=== PATIENT | female | born 1990 | race Two or more races ===

== ENCOUNTER 2017-11-05 03:07 | Emergency (ER) | payer MEDICAID, OTHER ==
[2017-11-05] MEDS ORDERED: Ketorolac 60 MG/2 ML SDV IM ONE (03:26)
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
[2017-11-05 04:51] VITALS: BP 108/63
== END 2017-11-05 04:25 | disposition home or self-care (01) ==
LOC: FB.ED 03:07
DX: S00.83XA Contusion of other part of head, initial encounter (principal); F17.210 Nicotine dependence, cigarettes, uncomplicated; Y04.0XXA Assault by unarmed brawl or fight, initial encounter
CPT/HCPCS: 70486; 96372; 99283; J1885

== ENCOUNTER 2019-09-08 17:25 | Observation (INO) | payer MEDICAID, OTHER ==
[2019-09-08] MEDS ORDERED: Morphine 2 MG/ML Syringe IVPUSH ONE ×2 (17:48→20:05)
[2019-09-08] MEDS ORDERED: Sodium Chloride 0.9% 1,000 ML IV SCH (18:00)
[2019-09-08] MEDS ORDERED: Ondansetron 4 MG/2 ML SDV IVPUSH ONE (19:19)
[2019-09-08] MEDS: Sodium Chloride 0.9% 1,000 ML IV SCH (20:04)
[2019-09-08] MEDS ORDERED: Ondansetron 4 MG/2 ML SDV IVPUSH PRN (20:51)
[2019-09-08] MEDS ORDERED: cefTRIAXone 1 GM in Sodium Chloride 0.9% 50 ML IV SCH (21:00)
[2019-09-08] MEDS: Potassium Chloride 20 MEQ Tab.ER PO SCH (21:24)
[2019-09-08] MEDS: Acetaminophen 500 MG Tab PO PRN (21:25)
[2019-09-09] MEDS: Morphine 2 MG/ML Syringe IVPUSH PRN ×4 (00:36→18:56)
[2019-09-09] MEDS ORDERED: Morphine 2 MG/ML Syringe IVPUSH ONE (02:17)
[2019-09-09] MEDS: Sodium Chloride 0.9% 1,000 ML IV SCH (03:48)
--- NOTE | 2019-09-09 04:13 | EDM.PDOC ---
ED HPI GENERAL MEDICAL PROBLEM - General Chief Complaint: Abdominal Pain Stated Complaint: RIGHT SIDE PAIN Time Seen by Provider: 09/08/19 17:30 Source of Information: Reports: Patient History Limitations: Reports: No Limitations - History of Present Illness INITIAL COMMENTS - FREE TEXT/NARRATIVE: Patient presented to the ED because of 2 day history of right flank pain radiating to the RLQ and right groin. The pain is sharp,10/10 with associated nausea but no vomiting. Denies any urinary s/s or changes in bowel movement. There is no fever/chills noted. She also want to be checked for although he has a nexplanon implant which was done 4 years ago. 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 Social & Family History - Family History Family Medical History: Noncontributory - Tobacco Use Smoking Status *Q: Current Some Day Smoker Years of Tobacco use: 10 Packs/Tins Daily: 0 Used Tobacco, but Quit: No Second Hand Smoke Exposure: Yes - Caffeine Use Caffeine Use: Reports: Coffee, Soda - Alcohol Use Days Per Week of Alcohol Use: 0 - Recreational Drug Use Recreational Drug Use: Yes Drug Use in Last 12 Months: Yes Recreational Drug Type: Reports: Marijuana/Hashish Recreational Drug Use Frequency: Weekly ED ROS GENERAL - Review of Systems Review Of Systems: See Below Constitutional: Reports: No Symptoms HEENT: Reports: No Symptoms Respiratory: Reports: No Symptoms Cardiovascular: Reports: No Symptoms Endocrine: Reports: No Symptoms GI/Abdominal: Reports: Abdominal Pain, Nausea. Denies: Vomiting : Reports: Flank Pain. Denies: Dysuria, Frequency, Urgency Musculoskeletal: Reports: No Symptoms Skin: Reports: No Symptoms Neurological: Reports: No Symptoms Psychiatric: Reports: No Symptoms Hematologic/Lymphatic: Reports: No Symptoms Immunologic: Reports: No Symptoms ED EXAM, GI/ABD - Physical Exam Exam: See Below Exam Limited By: No Limitations General Appearance: Alert, No Apparent Distress Ears: Normal External Exam, Normal Canal, Hearing Grossly Normal Nose: Normal Inspection, Normal Mucosa, No Blood Throat/Mouth: Normal Inspection, Normal Lips, Normal Teeth Head: Atraumatic, Normocephalic Neck: Normal Inspection, Supple, Non-Tender, Full Range of Motion Respiratory/Chest: No Respiratory Distress, Lungs Clear, Normal Breath Sounds, No Accessory Muscle Use, Chest Non-Tender Cardiovascular: Normal Peripheral Pulses, Regular Rate, Rhythm, No Edema, No Gallop, No JVD, No Murmur, No Rub GI/Abdominal Exam: Normal Bowel Sounds, Soft, Non-Tender, No Organomegaly, No Distention, No Abnormal Bruit (Female) Exam: Other (suprapubic tenderness) Back Exam: Normal Inspection Extremities: Normal Inspection Neurological: Alert, Oriented, CN II-XII Intact, Normal Cognition Psychiatric: Normal Affect, Normal Mood Skin Exam: Warm, Dry, Intact Course - Vital Signs Text/Narrative:: labs/US-OB and appendix discussed with the patient and verbalized understanding OB US-8th wk gestation US appendix-neg NS 1 L bolus zofran 4 mg IV morphine 2 mg IV x2 doses start on Rocephin 1gm IV Last Recorded V/S: Last Vital Signs Temp 37.3 C 09/09/19 00:00 Pulse 106 H 09/09/19 00:00 Resp 16 09/09/19 00:00 BP 90/53 L 09/09/19 00:00 Pulse Ox 97 09/09/19 00:00 - Orders/Labs/Meds Orders: Active Orders 24 hr Category Date Time Status Patient Status [ADT] Routine ADT 09/08/19 20:41 Active Intake and Output [RC] 06,14,22 Care 09/08/19 20:42 Active Oxygen Therapy [RC] PRN Care 09/08/19 20:41 Active Pulse Oximetry [RC] PRN Care 09/08/19 20:42 Active Up With Assistance [RC] ASDIRECTED Care 09/08/19 20:41 Active VTE/DVT Education [RC] Per Unit Routine Care 09/08/19 20:41 Active Vital Signs [RC] 08,12,16,20,00,04 Care 09/08/19 20:41 Active Regular Diet [DIET] Diet 09/08/19 Dinner Active Abdomen Ltd [US] Stat Exams 09/08/19 19:37 Taken OB Ltd 1 or More Fetus [US] Routine Exams 09/08/19 19:36 Taken OB Transvaginal [US] Routine Exams 09/08/19 19:36 Taken BASIC METABOLIC PANEL,BMP [CHEM] Routine Lab 09/09/19 06:00 Ordered CBC WITH AUTO DIFF [HEME] Routine Lab 09/09/19 06:00 Ordered CULTURE URINE [RM] Stat Lab 09/08/19 17:41 Received Acetaminophen [Tylenol Extra Strength] Med 09/08/19 20:51 Active 500 mg PO Q4H PRN Morphine Med 09/08/19 20:54 Active 2 mg IVPUSH Q4H PRN Ondansetron [Zofran] Med 09/08/19 20:51 Active 4 mg IVPUSH Q4H PRN Potassium Chloride [Klor-Con M20] Med 09/08/19 21:00 Active 40 meq PO BIDMEALS Sodium Chloride 0.9% [Normal Saline] 1,000 ml Med 09/08/19 18:00 Active IV ASDIRECTED Sodium Chloride 0.9% [Normal Saline] 1,000 ml Med 09/08/19 20:15 Active IV ASDIRECTED cefTRIAXone [Rocephin] 1 gm Med 09/08/19 21:00 Active Sodium Chloride 0.9% [Normal Saline] 50 ml IV Q24H Resuscitation Status Routine Resus Stat 09/08/19 20:41 Ordered Medication Orders Acetaminophen (Tylenol Extra Strength) 500 mg PO Q4H PRN PRN Reason: Fever Last Admin: 09/08/19 21:25 Dose: 500 mg Sodium Chloride (Normal Saline) 1,000 mls @ 999 mls/hr IV ASDIRECTED [facility] Last Admin: 09/08/19 19:03 Dose: 999 mls/hr Sodium Chloride (Normal Saline) 1,000 mls @ 125 mls/hr IV ASDIRECTED AJ Last Admin: 09/09/19 03:48 Dose: 125 mls/hr Infusion: 09/09/19 03:48 Dose: 125 mls/hr Admin: 09/08/19 20:04 Dose: 125 mls/hr Ceftriaxone Sodium 1 gm/ (Sodium Chloride) 50 mls @ 200 mls/hr IV Q24H [facility] Last Admin: 09/08/19 21:25 Dose: 200 mls/hr Morphine Sulfate (Morphine) 2 mg IVPUSH Q4H PRN PRN Reason: Pain Last Admin: 09/09/19 00:36 Dose: 2 mg Ondansetron HCl (Zofran) 4 mg IVPUSH Q4H PRN PRN Reason: Nausea/Vomiting Potassium Chloride (Klor-Con M20) 40 meq PO BIDMEALS AJ Stop: 09/10/19 08:01 Last Admin: 09/08/19 21:24 Dose: 40 meq Labs: Laboratory Tests 09/08/19 09/08/19 09/08/19 Range/Units 17:41 17:41 18:00 WBC 12.1 H (4.5-12.0) X10-3/uL RBC 3.90 (3.23-5.20) x10(6)uL Hgb 11.3 L (11.5-15.5) g/dL Hct 33.2 (30.0-51.3) % MCV 85.3 (80-96) fL MCH 29.1 (27.7-33.6) pg MCHC 34.1 (32.2-35.4) g/dL RDW 13.8 (11.5-15.5) % Plt Count 250 (125-369) X10(3)uL MPV 8.6 (7.4-10.4) fL Add Manual Diff Yes Neutrophils % (Manual) 85 H (46-82) % Band Neutrophils % 4 (0-6) % Lymphocytes % (Manual) 7 L (13-37) % Monocytes % (Manual) 4 (4-12) % Sodium (135-145) mmol/L Potassium (3.5-5.3) mmol/L Chloride (100-110) mmol/L Carbon Dioxide (21-32) mmol/L BUN (7-18) mg/dL Creatinine (0.55-1.02) mg/dL Est Cr Clr Drug Dosing Estimated GFR (MDRD) (>60) BUN/Creatinine Ratio (9-20) Glucose (80-116) mg/dL Calcium (8.6-10.2) mg/dL Total Bilirubin (0.1-1.3) mg/dL AST (5-25) IU/L ALT (12-36) U/L Alkaline Phosphatase (56-112) IU/L Total Protein (6.0-8.0) g/dL Albumin (3.5-5.2) g/dL Globulin g/dL Albumin/Globulin Ratio Amylase (25-115) U/L Lipase (73-393) U/L Urine Color Yellow (YELLOW) Urine Appearance Slightly cloudy (CLEAR) Urine pH 6.0 (5.0-6.5) Ur Specific [place] 1.020 (1.010-1.025) Urine Protein 500 H (NEGATIVE) mg/dL Urine Glucose (UA) 100 H (NORMAL) mg/dL Urine Ketones 15 H (NEGATIVE) mg/dL Urine Occult Blood Moderate H (NEGATIVE) Urine Nitrite Positive H (NEGATIVE) Urine Bilirubin Negative (NEGATIVE) Urine Urobilinogen 1 H (NEGATIVE) mg/dL Ur Leukocyte Esterase Large H (NEGATIVE) Urine RBC 5-10 H (0-5) Urine WBC 75-100 H (0-5) Ur Squamous Epith Cells Few H (NS,R,O) Urine Bacteria Moderate H (NS) Urine HCG, Qual Positive H (NEGATIVE) 09/08/19 09/08/19 Range/Units 18:00 18:00 WBC (4.5-12.0) X10-3/uL RBC (3.23-5.20) x10(6)uL Hgb (11.5-15.5) g/dL Hct (30.0-51.3) % MCV (80-96) fL MCH (27.7-33.6) pg MCHC (32.2-35.4) g/dL RDW (11.5-15.5) % Plt Count (125-369) X10(3)uL MPV (7.4-10.4) fL Add Manual Diff Neutrophils % (Manual) (46-82) % Band Neutrophils % (0-6) % Lymphocytes % (Manual) (13-37) % Monocytes % (Manual) (4-12) % Sodium 137 (135-145) mmol/L Potassium 3.3 L (3.5-5.3) mmol/L Chloride 102 (100-110) mmol/L Carbon Dioxide 23 (21-32) mmol/L BUN 4 L (7-18) mg/dL Creatinine 0.6 (0.55-1.02) mg/dL Est Cr Clr Drug Dosing TNP Estimated GFR (MDRD) > 60 (>60) BUN/Creatinine Ratio 6.7 L (9-20) Glucose 121 H (80-116) mg/dL Calcium 9.1 (8.6-10.2) mg/dL Total Bilirubin 0.6 (0.1-1.3) mg/dL AST 11 (5-25) IU/L ALT 11 L (12-36) U/L Alkaline Phosphatase 84 (56-112) IU/L Total Protein 7.4 (6.0-8.0) g/dL Albumin 3.1 L (3.5-5.2) g/dL Globulin 4.3 g/dL Albumin/Globulin Ratio 0.7 Amylase 28 (25-115) U/L Lipase 53 L (73-393) U/L Urine Color (YELLOW) Urine Appearance (CLEAR) Urine pH (5.0-6.5) Ur Specific [place] (1.010-1.025) Urine Protein (NEGATIVE) mg/dL Urine Glucose (UA) (NORMAL) mg/dL Urine Ketones (NEGATIVE) mg/dL Urine Occult Blood (NEGATIVE) Urine Nitrite (NEGATIVE) Urine Bilirubin (NEGATIVE) Urine Urobilinogen (NEGATIVE) mg/dL Ur Leukocyte Esterase (NEGATIVE) Urine RBC (0-5) Urine WBC (0-5) Ur Squamous Epith Cells (NS,R,O) Urine Bacteria (NS) Urine HCG, Qual (NEGATIVE) Meds: Medications Generic Name Dose Route Start Last Admin Trade Name Freq PRN Reason Stop Dose Admin Acetaminophen 500 mg 09/08/19 20:51 09/08/19 21:25 Tylenol Extra Strength PO 500 mg Q4H PRN Administration Fever Sodium Chloride 1,000 mls @ 999 mls/hr 09/08/19 18:00 09/08/19 19:03 Normal Saline IV 999 mls/hr ASDIRECTED AJ Administration Sodium Chloride 1,000 mls @ 125 mls/hr 09/08/19 20:15 09/09/19 03:48 Normal Saline IV 125 mls/hr ASDIRECTED AJ Administration Ceftriaxone Sodium 1 gm/ 50 mls @ 200 mls/hr 09/08/19 21:00 09/08/19 21:25 Sodium Chloride IV 200 mls/hr Q24H AJ Administration Morphine Sulfate 2 mg 09/08/19 20:54 09/09/19 00:36 Morphine IVPUSH 2 mg Q4H PRN Administration Pain Ondansetron HCl 4 mg 09/08/19 20:51 Zofran IVPUSH Q4H PRN Nausea/Vomiting Potassium Chloride 40 meq 09/08/19 21:00 09/08/19 21:24 Klor-Con M20 PO 09/10/19 08:01 40 meq BIDMEALS AJ Administration Discontinued Medications Generic Name Dose Route Start Last Admin Trade Name Freq PRN Reason Stop Dose Admin Morphine Sulfate 2 mg 09/08/19 17:48 09/08/19 18:09 Morphine IVPUSH 09/08/19 17:49 2 mg ONETIME ONE Administration Morphine Sulfate 2 mg 09/08/19 20:05 09/08/19 20:19 Morphine IVPUSH 09/08/19 20:06 2 mg ONETIME ONE Administration Morphine Sulfate 2 mg 09/09/19 02:17 09/09/19 02:28 Morphine IVPUSH 09/09/19 02:18 2 mg ONETIME ONE Administration Ondansetron HCl 4 mg 09/08/19 19:19 09/08/19 19:25 Zofran IVPUSH 09/08/19 19:20 4 mg ONETIME ONE Administration Departure - Departure Time of Disposition: 17:00 Disposition: Refer to Observation Condition: Good Clinical Impression: UTI (urinary tract infection), Pyelonephritis affecting in first trimester - Discharge Information Sepsis Event Note - Evaluation Sepsis Screening Result: No Definite Risk - Focused Exam Vital Signs: Vital Signs Temp Pulse Resp BP Pulse Ox 09/08/19 20:56 36.7 C 112 H 18 111/68 100 09/08/19 20:42 99 09/08/19 20:41 37.2 C 102 H 16 92/64 99 09/08/19 19:19 37.4 C 101 H 18 102/62 100 09/08/19 17:25 37.7 C 113 H 20 118/80 100 Date Exam was Performed: 09/09/19 Time Exam was Performed: 04:06 - My Orders Last 24 Hours: My Active Orders 09/08/19 17:41 CULTURE URINE [RM] Stat 09/08/19 18:00 Sodium Chloride 0.9% [Normal Saline] 1,000 ml IV ASDIRECTED 09/08/19 19:36 OB Ltd 1 or More Fetus [US] Routine OB Transvaginal [US] Routine 09/08/19 19:37 Abdomen Ltd [US] Stat 09/08/19 20:15 Sodium Chloride 0.9% [Normal Saline] 1,000 ml IV ASDIRECTED 09/08/19 20:41 Patient Status [ADT] Routine Oxygen Therapy [RC] PRN Up With Assistance [RC] ASDIRECTED VTE/DVT Education [RC] Per Unit Routine Vital Signs [RC] 08,12,16,20,00,04 Resuscitation Status Routine 09/08/19 20:42 Intake and Output [RC] 06,14,22 Pulse Oximetry [RC] PRN 09/08/19 20:51 Acetaminophen [Tylenol Extra Strength] 500 mg PO Q4H PRN Ondansetron [Zofran] 4 mg IVPUSH Q4H PRN 09/08/19 20:54 Morphine 2 mg IVPUSH Q4H PRN 09/08/19 21:00 Potassium Chloride [Klor-Con M20] 40 meq PO BIDMEALS cefTRIAXone [Rocephin] 1 gm Sodium Chloride 0.9% [Normal Saline] 50 ml IV Q24H 09/08/19 Dinner Regular Diet [DIET] 09/09/19 06:00 BASIC METABOLIC PANEL,BMP [CHEM] Routine CBC WITH AUTO DIFF [HEME] Routine - Assessment/Plan Last 24 Hours: My Active Orders 09/08/19 17:41 CULTURE URINE [RM] Stat 09/08/19 18:00 Sodium Chloride 0.9% [Normal Saline] 1,000 ml IV ASDIRECTED 09/08/19 19:36 OB Ltd 1 or More Fetus [US] Routine OB Transvaginal [US] Routine 09/08/19 19:37 Abdomen Ltd [US] Stat 09/08/19 20:15 Sodium Chloride 0.9% [Normal Saline] 1,000 ml IV ASDIRECTED 09/08/19 20:41 Patient Status [ADT] Routine Oxygen Therapy [RC] PRN Up With Assistance [RC] ASDIRECTED VTE/DVT Education [RC] Per Unit Routine Vital Signs [RC] 08,12,16,20,00,04 Resuscitation Status Routine 09/08/19 20:42 Intake and Output [RC] 06,14,22 Pulse Oximetry [RC] PRN 09/08/19 20:51 Acetaminophen [Tylenol Extra Strength] 500 mg PO Q4H PRN Ondansetron [Zofran] 4 mg IVPUSH Q4H PRN 09/08/19 20:54 Morphine 2 mg IVPUSH Q4H PRN 09/08/19 21:00 Potassium Chloride [Klor-Con M20] 40 meq PO BIDMEALS cefTRIAXone [Rocephin] 1 gm Sodium Chloride 0.9% [Normal Saline] 50 ml IV Q24H 09/08/19 Dinner Regular Diet [DIET] 09/09/19 06:00 BASIC METABOLIC PANEL,BMP [CHEM] Routine CBC WITH AUTO DIFF [HEME] Routine
[2019-09-09] MEDS: Potassium Chloride 20 MEQ Tab.ER PO SCH ×2 (08:43→18:59)
--- NOTE | 2019-09-09 09:19 | PCM.HP.2 ---
H&P History of Present Illness - General Date of Service: 09/09/19 Admit Problem/Dx: Admission Diagnosis/Problem Admission Diagnosis/Problem Pyelonephritis Source of Information: Patient History Limitations: Reports: No Limitations - History of Present Illness Initial Comments - Free Text/Narative: Priscilla complains of right flank pain for 2 days,insidious onset. No radiation. Associated with vomiting,delayed menses. No fever or chills. No vaginal bleeding.In the ED,after work up,she was found to have a UTI and early gestation of about 8 weeks. RLQ Pain Score (Numeric/FACES): 4 - Related Data Allergies/Adverse Reactions: Allergies Allergy/AdvReac Type Severity Reaction Status Date / Time No Known Allergies Allergy Verified 09/08/19 19:26 Home Medications: Home Meds Naproxen Sodium [Aleve] 220 mg PO DAILY PRN 09/09/19 [History] No115/Iron/Folic Acid [ 19 Chewable Tablet] 1 tab PO DAILY 05/21 [History] Past Medical History - Past Health History Medical/Surgical History: Denies Medical/Surgical History [employer] History: Reports: Other (See Below) Other OB/BYN History: UTI Social & Family History - Family History Family Medical History: Noncontributory - Tobacco Use Smoking Status *Q: Current Some Day Smoker Years of Tobacco use: 10 Packs/Tins Daily: 0 Used Tobacco, but Quit: No Second Hand Smoke Exposure: Yes - Caffeine Use Caffeine Use: Reports: Coffee, Soda - Alcohol Use Days Per Week of Alcohol Use: 0 - Recreational Drug Use Recreational Drug Use: Yes Drug Use in Last 12 Months: Yes Recreational Drug Type: Reports: Marijuana/Hashish Recreational Drug Use Frequency: Weekly H&P Review of Systems - Review of Systems: Review Of Systems: Comprehensive ROS is negative, except as noted in HPI. Exam - Exam Exam: See Below - Vital Signs Vital Signs: Last Vital Signs Temp 99.2 F 09/09/19 00:00 Pulse 106 H 09/09/19 00:00 Resp 16 09/09/19 00:00 BP 90/53 L 09/09/19 00:00 Pulse Ox 97 09/09/19 00:00 Weight: 68.175 kg - Exam General: Alert, Oriented, 4 HEENT: PERRLA, Hearing Intact, Mucosa Moist & [place], Nares Patent, Normal Nasal Septum, Posterior Pharynx Clear, Conjunctiva Clear, EOMI, EACs Clear, TMs Clear Neck: Supple, Trachea Midline, 2 Lungs: Clear to Auscultation, Normal Respiratory Effort Cardiovascular: Regular Rate, Regular Rhythm GI/Abdominal Exam: Normal Bowel Sounds, Soft, Non-Tender, No Organomegaly, No Distention, No Abnormal Bruit, No Mass, Pelvis Stable (Female) Exam: Deferred Rectal (Female) Exam: Deferred Back Exam: CVA Tenderness (R) Extremities: Normal Inspection, Other Skin: Warm, Dry, Intact Neurological: Cranial Nerves Intact, Reflexes Equal Bilateral Neuro Extensive - Mental Status: Alert, Oriented x3, Normal Mood/Affect, Normal Cognition Neuro Extensive - Motor, Sensory, Reflexes: CN II-XII Intact, Normal Gait, Normal Reflexes Psychiatric: Alert, Normal Affect, Normal Mood - Patient Data Lab Results Last 24 hrs: Laboratory Results - last 24 hr 09/08/19 09/08/19 09/08/19 Range/Units 17:41 17:41 18:00 WBC 12.1 H (4.5-12.0) X10-3/uL RBC 3.90 (3.23-5.20) x10(6)uL Hgb 11.3 L (11.5-15.5) g/dL Hct 33.2 (30.0-51.3) % MCV 85.3 (80-96) fL MCH 29.1 (27.7-33.6) pg MCHC 34.1 (32.2-35.4) g/dL RDW 13.8 (11.5-15.5) % Plt Count 250 (125-369) X10(3)uL MPV 8.6 (7.4-10.4) fL Neut % (Auto) (46-82) % Lymph % (Auto) (13-37) % Nicholas % (Auto) (4-12) % Eos % (Auto) (1.0-5.0) % Baso % (Auto) (0-2) % Neut # (Auto) (1.6-8.3) # Lymph # (Auto) (0.6-5.0) # Nicholas # (Auto) (0.0-1.3) # Eos # (Auto) (0.0-0.8) # Baso # (Auto) (0.0-0.2) # Add Manual Diff Yes Neutrophils % (Manual) 85 H (46-82) % Band Neutrophils % 4 (0-6) % Lymphocytes % (Manual) 7 L (13-37) % Monocytes % (Manual) 4 (4-12) % Sodium (135-145) mmol/L Potassium (3.5-5.3) mmol/L Chloride (100-110) mmol/L Carbon Dioxide (21-32) mmol/L BUN (7-18) mg/dL Creatinine (0.55-1.02) mg/dL Est Cr Clr Drug Dosing Estimated GFR (MDRD) (>60) BUN/Creatinine Ratio (9-20) Glucose (80-116) mg/dL Calcium (8.6-10.2) mg/dL Total Bilirubin (0.1-1.3) mg/dL AST (5-25) IU/L ALT (12-36) U/L Alkaline Phosphatase (56-112) IU/L Total Protein (6.0-8.0) g/dL Albumin (3.5-5.2) g/dL Globulin g/dL Albumin/Globulin Ratio Amylase (25-115) U/L Lipase (73-393) U/L Urine Color Yellow (YELLOW) Urine Appearance Slightly cloudy (CLEAR) Urine pH 6.0 (5.0-6.5) Ur Specific [place] 1.020 (1.010-1.025) Urine Protein 500 H (NEGATIVE) mg/dL Urine Glucose (UA) 100 H (NORMAL) mg/dL Urine Ketones 15 H (NEGATIVE) mg/dL Urine Occult Blood Moderate H (NEGATIVE) Urine Nitrite Positive H (NEGATIVE) Urine Bilirubin Negative (NEGATIVE) Urine Urobilinogen 1 H (NEGATIVE) mg/dL Ur Leukocyte Esterase Large H (NEGATIVE) Urine RBC 5-10 H (0-5) Urine WBC 75-100 H (0-5) Ur Squamous Epith Cells Few H (NS,R,O) Urine Bacteria Moderate H (NS) Urine HCG, Qual Positive H (NEGATIVE) 09/08/19 09/08/19 09/09/19 Range/Units 18:00 18:00 06:25 WBC 9.4 (4.5-12.0) X10-3/uL RBC 3.92 (3.23-5.20) x10(6)uL Hgb 11.2 L (11.5-15.5) g/dL Hct 33.9 (30.0-51.3) % MCV 86.5 (80-96) fL MCH 28.6 (27.7-33.6) pg MCHC 33.1 (32.2-35.4) g/dL RDW 13.9 (11.5-15.5) % Plt Count 224 (125-369) X10(3)uL MPV 8.6 (7.4-10.4) fL Neut % (Auto) 84.9 H (46-82) % Lymph % (Auto) 7.4 L (13-37) % Nicholas % (Auto) 7.2 (4-12) % Eos % (Auto) 0 L (1.0-5.0) % Baso % (Auto) 0 (0-2) % Neut # (Auto) 8.0 (1.6-8.3) # Lymph # (Auto) 0.7 (0.6-5.0) # Nicholas # (Auto) 0.7 (0.0-1.3) # Eos # (Auto) 0.0 (0.0-0.8) # Baso # (Auto) 0.0 (0.0-0.2) # Add Manual Diff Neutrophils % (Manual) (46-82) % Band Neutrophils % (0-6) % Lymphocytes % (Manual) (13-37) % Monocytes % (Manual) (4-12) % Sodium 137 (135-145) mmol/L Potassium 3.3 L (3.5-5.3) mmol/L Chloride 102 (100-110) mmol/L Carbon Dioxide 23 (21-32) mmol/L BUN 4 L (7-18) mg/dL Creatinine 0.6 (0.55-1.02) mg/dL Est Cr Clr Drug Dosing TNP Estimated GFR (MDRD) > 60 (>60) BUN/Creatinine Ratio 6.7 L (9-20) Glucose 121 H (80-116) mg/dL Calcium 9.1 (8.6-10.2) mg/dL Total Bilirubin 0.6 (0.1-1.3) mg/dL AST 11 (5-25) IU/L ALT 11 L (12-36) U/L Alkaline Phosphatase 84 (56-112) IU/L Total Protein 7.4 (6.0-8.0) g/dL Albumin 3.1 L (3.5-5.2) g/dL Globulin 4.3 g/dL Albumin/Globulin Ratio 0.7 Amylase 28 (25-115) U/L Lipase 53 L (73-393) U/L Urine Color (YELLOW) Urine Appearance (CLEAR) Urine pH (5.0-6.5) Ur Specific [place] (1.010-1.025) Urine Protein (NEGATIVE) mg/dL Urine Glucose (UA) (NORMAL) mg/dL Urine Ketones (NEGATIVE) mg/dL Urine Occult Blood (NEGATIVE) Urine Nitrite (NEGATIVE) Urine Bilirubin (NEGATIVE) Urine Urobilinogen (NEGATIVE) mg/dL Ur Leukocyte Esterase (NEGATIVE) Urine RBC (0-5) Urine WBC (0-5) Ur Squamous Epith Cells (NS,R,O) Urine Bacteria (NS) Urine HCG, Qual (NEGATIVE) 09/09/19 Range/Units 06:25 WBC (4.5-12.0) X10-3/uL RBC (3.23-5.20) x10(6)uL Hgb (11.5-15.5) g/dL Hct (30.0-51.3) % MCV (80-96) fL MCH (27.7-33.6) pg MCHC (32.2-35.4) g/dL RDW (11.5-15.5) % Plt Count (125-369) X10(3)uL MPV (7.4-10.4) fL Neut % (Auto) (46-82) % Lymph % (Auto) (13-37) % Nicholas % (Auto) (4-12) % Eos % (Auto) (1.0-5.0) % Baso % (Auto) (0-2) % Neut # (Auto) (1.6-8.3) # Lymph # (Auto) (0.6-5.0) # Nicholas # (Auto) (0.0-1.3) # Eos # (Auto) (0.0-0.8) # Baso # (Auto) (0.0-0.2) # Add Manual Diff Neutrophils % (Manual) (46-82) % Band Neutrophils % (0-6) % Lymphocytes % (Manual) (13-37) % Monocytes % (Manual) (4-12) % Sodium 138 (135-145) mmol/L Potassium 3.7 (3.5-5.3) mmol/L Chloride 104 (100-110) mmol/L Carbon Dioxide 24 (21-32) mmol/L BUN 3 L (7-18) mg/dL Creatinine 0.7 (0.55-1.02) mg/dL Est Cr Clr Drug Dosing 113.01 Estimated GFR (MDRD) > 60 (>60) BUN/Creatinine Ratio 4.3 L (9-20) Glucose 99 (80-116) mg/dL Calcium 8.6 (8.6-10.2) mg/dL Total Bilirubin (0.1-1.3) mg/dL AST (5-25) IU/L ALT (12-36) U/L Alkaline Phosphatase (56-112) IU/L Total Protein (6.0-8.0) g/dL Albumin (3.5-5.2) g/dL Globulin g/dL Albumin/Globulin Ratio Amylase (25-115) U/L Lipase (73-393) U/L Urine Color (YELLOW) Urine Appearance (CLEAR) Urine pH (5.0-6.5) Ur Specific [place] (1.010-1.025) Urine Protein (NEGATIVE) mg/dL Urine Glucose (UA) (NORMAL) mg/dL Urine Ketones (NEGATIVE) mg/dL Urine Occult Blood (NEGATIVE) Urine Nitrite (NEGATIVE) Urine Bilirubin (NEGATIVE) Urine Urobilinogen (NEGATIVE) mg/dL Ur Leukocyte Esterase (NEGATIVE) Urine RBC (0-5) Urine WBC (0-5) Ur Squamous Epith Cells (NS,R,O) Urine Bacteria (NS) Urine HCG, Qual (NEGATIVE) Result Diagrams: 09/09/19 06:25 09/09/19 06:25 Sepsis Event Note - Evaluation Sepsis Screening Result: No Definite Risk - Focused Exam Vital Signs: Vital Signs Temp Pulse Resp BP Pulse Ox 09/09/19 00:00 99.2 F 106 H 16 90/53 L 97 Date Exam was Performed: 09/09/19 Time Exam was Performed: 10:32 - Problem List (1) Pyelonephritis affecting in first trimester SNOMED Code(s): 39708816, 28478555, 324058442, 481401176 ICD Code: O23.01 - INFECTIONS OF KIDNEY IN , FIRST TRIMESTER Status: Acute Current Visit: Yes Problem List Initiated/Reviewed/Updated: Yes Orders Last 24hrs: Active Orders 24 hr Category Date Time Status Patient Status [ADT] Routine ADT 09/08/19 20:41 Active Intake and Output [RC] 06,14,22 Care 09/08/19 20:42 Active Oxygen Therapy [RC] PRN Care 09/08/19 20:41 Active Pulse Oximetry [RC] PRN Care 09/08/19 20:42 Active Up With Assistance [RC] ASDIRECTED Care 09/08/19 20:41 Active VTE/DVT Education [RC] Per Unit Routine Care 09/08/19 20:41 Active Vital Signs [RC] 08,12,16,20,00,04 Care 09/08/19 20:41 Active Regular Diet [DIET] Diet 09/08/19 Dinner Active Abdomen Ltd [US] Stat Exams 09/08/19 19:37 Taken OB Ltd 1 or More Fetus [US] Routine Exams 09/08/19 19:36 Taken OB Transvaginal [US] Routine Exams 09/08/19 19:36 Taken CULTURE URINE [RM] Stat Lab 09/08/19 17:41 Received Acetaminophen [Tylenol Extra Strength] Med 09/08/19 20:51 Active 500 mg PO Q4H PRN Morphine Med 09/08/19 20:54 Active 2 mg IVPUSH Q4H PRN Ondansetron [Zofran] Med 09/08/19 20:51 Active 4 mg IVPUSH Q4H PRN Potassium Chloride [Klor-Con M20] Med 09/08/19 21:00 Active 40 meq PO BIDMEALS Sodium Chloride 0.9% [Normal Saline] 1,000 ml Med 09/08/19 18:00 Active IV ASDIRECTED Sodium Chloride 0.9% [Normal Saline] 1,000 ml Med 09/08/19 20:15 Active IV ASDIRECTED cefTRIAXone [Rocephin] Med 09/09/19 21:00 Active 1 gm IVPUSH Q24H Resuscitation Status Routine Resus Stat 09/08/19 20:41 Ordered Medication Orders Acetaminophen (Tylenol Extra Strength) 500 mg PO Q4H PRN PRN Reason: Fever Last Admin: 09/08/19 21:25 Dose: 500 mg Ceftriaxone Sodium (Rocephin) 1 gm IVPUSH Q24H [facility] Sodium Chloride (Normal Saline) 1,000 mls @ 999 mls/hr IV ASDIRECTED [facility] Last Admin: 09/08/19 19:03 Dose: 999 mls/hr Sodium Chloride (Normal Saline) 1,000 mls @ 125 mls/hr IV ASDIRECTED [facility] Last Admin: 09/09/19 03:48 Dose: 125 mls/hr Infusion: 09/09/19 03:48 Dose: 125 mls/hr Admin: 09/08/19 20:04 Dose: 125 mls/hr Morphine Sulfate (Morphine) 2 mg IVPUSH Q4H PRN PRN Reason: Pain Last Admin: 09/09/19 07:43 Dose: 2 mg Admin: 09/09/19 00:36 Dose: 2 mg Ondansetron HCl (Zofran) 4 mg IVPUSH Q4H PRN PRN Reason: Nausea/Vomiting Potassium Chloride (Klor-Con M20) 40 meq PO BIDMEALS [facility] Stop: 09/10/19 08:01 Last Admin: 09/09/19 08:43 Dose: 40 meq Admin: 09/08/19 21:24 Dose: 40 meq Assessment/Plan Comment:: Continue IV Rocephin for today. Advance diet,and Heplock IV. DC home tomorrow - Mortality Measure Prognosis:: Good
[2019-09-09] MEDS: Acetaminophen 500 MG Tab PO PRN ×2 (10:28→20:37)
--- NOTE | 2019-09-09 18:50 | US ---
INDICATION: Right lower quadrant pain, question appy. ULTRASOUND ABDOMEN, LIMITED: Multiple ultrasonic images were obtained in the right lower quadrant and failed to reveal evidence of appendicitis. No solid or cystic masses were noted in the right lower quadrant. Fluid-filled loop of bowel was noted in that area. Bowel gas limited visualization somewhat. No evidence of ectopic was noted. IMPRESSION: No ectopic or evidence of appendicitis was demonstrated. [facility]
[2019-09-09] MEDS: Sodium Chloride 0.9% 10 ML Syringe FLUSH PRN ×3 (18:56→21:04)
[2019-09-09] MEDS ORDERED: cefTRIAXone 1 GM Vial IVPUSH SCH (21:00)
[2019-09-10] MEDS: Sodium Chloride 0.9% 10 ML Syringe FLUSH PRN (02:08)
[2019-09-10] MEDS: Morphine 2 MG/ML Syringe IVPUSH PRN (02:08)
[2019-09-10] MEDS: Acetaminophen 500 MG Tab PO PRN ×2 (08:17→13:21)
[2019-09-10] MEDS: Potassium Chloride 20 MEQ Tab.ER PO SCH (08:17)
[2019-09-10] MEDS ORDERED: Cefdinir 300 MG Cap PO SCH (10:00)
[2019-09-10 12:17] VITALS: BP 97/64; PULSE 86
--- NOTE | 2019-09-10 13:30 | US ---
INDICATION: Right lower quadrant pain. INDICATION FOR TRANSVAGINAL: Need better visualization of the left ovary and the fetus than was possible with the transabdominal probe. OB ULTRASOUND LIMITED/OB ULTRASOUND TRANSVAGINAL: Multiple ultrasonic images were obtained initially with transabdominal probe and then with transvaginal probe to better visualize the fetus and the left ovary with 2-D realtime and duplex Doppler spectral analysis, as well as color flow imaging. A single intrauterine gestation is noted with a crown-rump length compatible with 8 weeks 2 days gestational age. This is compatible with the LMPGA which is 8 weeks 3 days. CATIE by ultrasound is 04/17/20, compared with the LMP CATIE of 04/16/20 - agrees. Yolk sac measures 6.3 mm. Right ovary measures 2.6 x 1.8 x 1.6 cm. Left ovary measures 4 x 1.7 x 3.3 cm. Both ovaries were unremarkable. A regular heart rate was noted, but is demonstrated only on cine-loops. The cervix was not ideally visualized, but did not appear to be abnormal. IMPRESSION: Essentially normal IUP - agrees with LMPGA to within a day: by ultrasound 8 weeks 2 days, CATIE 04/17/20 by ultrasound. heart motion was noted. [facility]
--- NOTE | 2019-09-10 13:41 | PCM.DCSUM1 ---
Discharge Summary - Hospital Course HPI Initial Comments: Priscilla complains of right flank pain for 2 days,insidious onset. No radiation. Associated with vomiting,delayed menses. No fever or chills. No vaginal bleeding.In the ED,after work up, she was found to have a UTI and early gestation of about 8 weeks. Diagnosis: Stroke: No - Discharge Data Discharge Date: 09/10/19 Discharge Disposition: Home, Self-Care 01 Condition: Good - Referral to Home Health Primary Care Physician: PCP None - Discharge Diagnosis/Problem(s) (1) Pyelonephritis affecting in first trimester SNOMED Code(s): 22617978, 79174298, 214795683, 526362569 ICD Code: O23.01 - INFECTIONS OF KIDNEY IN , FIRST TRIMESTER Status: Acute (2) UTI (urinary tract infection) SNOMED Code(s): 03260153 ICD Code: N39.0 - URINARY TRACT INFECTION, SITE NOT SPECIFIED Status: Acute - Patient Summary/Data Hospital Course: Found to have UTI/pyelonephritis on right, had abdominal ultrasound ruled out appendicitis, OB ultrasound showed normal IUP at 8 weeks 2 days. She was started on Rocephin for pyelonephritis, received 2 doses. IV fluids. Urine culture grew E. coli sensitive to cephalosporins. Tolerating diet and fluids. Discharge with 10 days of Cefdinir for total 12 day course. - Patient Instructions Diet: Regular Diet as Tolerated Driving: May Drive Today Showering/Bathing: May Shower Notify Provider of: Fever, Increased Pain, Nausea and/or Vomiting Other/Special Instructions: Follow up with Dr Duenas at [facility] in 1-2 weeks for recheck of kidney infection and to establish OB care. - Discharge Plan *PRESCRIPTION DRUG MONITORING PROGRAM REVIEWED*: No *COPY OF PRESCRIPTION DRUG MONITORING REPORT IN PATIENT KASEY: No Prescriptions/Med Rec: Cefdinir [Omnicef] 300 mg PO BID 10 Days #20 cap Home Medications: Home Meds No115/Iron/Folic Acid [ 19 Chewable Tablet] 1 tab PO DAILY 05/21 [History] Acetaminophen [Tylenol Extra Strength] 500 mg PO Q4H PRN tablet 09/10/19 [Rx] Cefdinir [Omnicef] 300 mg PO BID 10 Days #20 cap 01/10/20 [Rx] Patient Handouts: Cefdinir capsules, Pyelonephritis, Adult, [id number] Forms: ED Department Discharge Referrals: Manas Duenas MD [ED Physician] - - Discharge Summary/Plan Comment DC Time >30 min.: No - General Info Date of Service: 09/10/19 Admission Dx/Problem (Free Text: Priscilla's pain is better today, no fevers or chills. No nausea or vomiting. No diarrhea. Still some right flank pain but improved. Would like to go home. She was also planning on seeing Dr Duenas to establish care. Functional Status: Reports: Pain Controlled, Tolerating Diet - Patient Data Vitals - Most Recent: Last Vital Signs Temp 97.5 F 09/10/19 12:00 Pulse 86 09/10/19 12:00 Resp 16 09/10/19 12:00 BP 97/64 09/10/19 12:00 Pulse Ox 97 09/10/19 12:00 Weight - Most Recent: 150 lb 4.8 oz I&O - Last 24 hours: Intake & Output 09/09/19 09/10/19 09/10/19 22:59 06:59 14:59 Output Total 1300 1150 Balance -1300 -1150 CARLY Results - Last 24 hrs: Microbiology 09/08/19 17:41 Urine Culture - Final Urine, Voided Escherichia Coli Med Orders - Current: Current Medications Discontinued Medications Acetaminophen (Tylenol Extra Strength) 500 mg PO Q4H PRN PRN Reason: Fever Last Admin: 09/10/19 13:21 Dose: 500 mg Cefdinir (Omnicef) 300 mg PO BID [facility] Last Admin: 09/10/19 10:39 Dose: 300 mg Ceftriaxone Sodium (Rocephin) 1 gm IVPUSH Q24H [facility] Last Admin: 09/09/19 21:04 Dose: 1 gm Sodium Chloride (Normal Saline) 1,000 mls @ 999 mls/hr IV ASDIRECTED [facility] Last Admin: 09/08/19 19:03 Dose: 999 mls/hr Sodium Chloride (Normal Saline) 1,000 mls @ 125 mls/hr IV ASDIRECTED [facility] Last Admin: 09/09/19 03:48 Dose: 125 mls/hr Ceftriaxone Sodium 1 gm/ (Sodium Chloride) 50 mls @ 200 mls/hr IV Q24H [facility] Last Admin: 09/08/19 21:25 Dose: 200 mls/hr Morphine Sulfate (Morphine) 2 mg IVPUSH ONETIME ONE Stop: 09/08/19 17:49 Last Admin: 09/08/19 18:09 Dose: 2 mg Morphine Sulfate (Morphine) 2 mg IVPUSH ONETIME ONE Stop: 09/08/19 20:06 Last Admin: 09/08/19 20:19 Dose: 2 mg Morphine Sulfate (Morphine) 2 mg IVPUSH Q4H PRN PRN Reason: Pain Last Admin: 09/10/19 02:08 Dose: 2 mg Morphine Sulfate (Morphine) 2 mg IVPUSH ONETIME ONE Stop: 09/09/19 02:18 Last Admin: 09/09/19 02:28 Dose: 2 mg Ondansetron HCl (Zofran) 4 mg IVPUSH ONETIME ONE Stop: 09/08/19 19:20 Last Admin: 09/08/19 19:25 Dose: 4 mg Ondansetron HCl (Zofran) 4 mg IVPUSH Q4H PRN PRN Reason: Nausea/Vomiting Potassium Chloride (Klor-Con M20) 40 meq PO BIDMEALS [facility] Stop: 09/10/19 08:01 Last Admin: 09/10/19 08:17 Dose: 40 meq Sodium Chloride (Saline Flush) 10 ml FLUSH ASDIRECTED PRN PRN Reason: IV Use Last Admin: 09/10/19 02:08 Dose: 10 ml - Exam General: Reports: Alert, Oriented, Cooperative, No Acute Distress Lungs: Reports: Clear to Auscultation, Normal Respiratory Effort Cardiovascular: Reports: Regular Rate, Regular Rhythm GI/Abdominal Exam: Normal Bowel Sounds, Soft, Non-Tender, No Distention Back Exam: Reports: CVA Tenderness (R). Denies: CVA Tenderness (L) Extremities: No Pedal Edema Skin: Reports: Warm, Dry, Intact
== END 2019-09-10 13:25 | disposition home or self-care (01) ==
LOC: FB.ED 17:25 → FB.MS 20:58
PROVIDERS: ADMIT Emergency Medicine; ATTEND Family Medicine
DX: O23.01 Infections of kidney in pregnancy, first trimester (principal); O99.331 Smoking (tobacco) complicating pregnancy, first trimester; B96.20 Unspecified Escherichia coli [E. coli] as the cause of diseases classified elsewhere; F17.210 Nicotine dependence, cigarettes, uncomplicated; Z3A.08 8 weeks gestation of pregnancy
CPT/HCPCS: 36415; 76705; 76815; 76817; 80048; 80053; 81001; 81025; 82150; 83690; 85025; 87086; 87088; 87186; A9270-GY; J0696; J2270; J2405; J7030; J7050

== ENCOUNTER 2024-01-09 19:43 | Emergency (ER) | payer MEDICAID, OTHER ==
[2024-01-09] MEDS ORDERED: Naloxone 0.4 MG/ML SDV IVPUSH PRN (20:15)
[2024-01-09] MEDS ORDERED: Sodium Chloride 0.9% 10 ML Syringe FLUSH PRN (20:15)
[2024-01-09 20:28] LABS: BASOPHILS PERCENT AUTO 0.2 % (0.2-1.5); BLOOD UREA NITROGEN,BUN 9 mg/dL (7-18); BUN/CREATININE RATIO 12.9 (9-20); CALCIUM 8.8 mg/dL (8.6-10.2); CARBON DIOXIDE,CO2 26 mmol/L (21-32); CHLORIDE,CL 101 mmol/L (100-110); CREATININE 0.7 mg/dL (0.55-1.02); EOSINOPHILS ABSOLUTE AUTO 0.1 x10-3/uL (0.0-0.8); EOSINOPHILS PERCENT AUTO 1.4 % (0.6-8.1); EST CRCL DRUG DOSING (CG) 104.78 mL/min; ESTIMATED GFR 119 mL/min (>60); GLUCOSE RANDOM 102 mg/dL (80-116); HEMATOCRIT 37.6 % (34.2-48.2); HEMOGLOBIN 12.4 g/dL (11.4-15.5); LYMPHOCYTES ABSOLUTE AUTO 1.2 x10-3/uL (1.0-4.4); LYMPHOCYTES PERCENT AUTO 13.5 % (18.4-52.1); MEAN CORPUSCULAR HEMOGLOBIN 28.6 pg (23.9-33.9); MEAN CORPUSCULAR VOLUME 86.7 fL (76.7-100.5); MEAN PLATELET VOLUME 8.4 fL (7.1-12.4); MONOCYTES ABSOLUTE AUTO 0.3 x10-3/uL (0.3-1.0); MONOCYTES PERCENT AUTO 3.4 % (4.4-15.7); NEUTROPHILS ABSOLUTE AUTO 7.2 x10-3/uL (1.5-6.3); NEUTROPHILS PERCENT AUTO 81.5 % (30.8-76.2); PLATELET COUNT,PLT 333 x10(3)uL (151-488); RED BLOOD CELL COUNT 4.34 x10(6)uL (3.60-5.20); RED CELL DISTRIBUTION WIDTH 14.1 % (12.3-16.5); SODIUM,NA 138 mmol/L (135-145); WHITE BLOOD CELL COUNT,WBC 8.8 x10-3/uL (3.0-10.3)
[2024-01-09 20:30] LABS: LIPASE 20 U/L (16-77)
[2024-01-09] MEDS: Sodium Chloride 0.9% 1,000 ML IV ONE (20:30)
[2024-01-09] MEDS: Ondansetron 4 MG/2 ML SDV IVPUSH ONE (20:30)
[2024-01-09] MEDS: Morphine 4 MG/ML VIAL IVPUSH ONE (20:30)
[2024-01-09 20:32] LABS: C-REACTIVE PROTEIN < 0.50 mg/dL (<0.50)
[2024-01-09 20:34] LABS: A/G RATIO 0.9; ALANINE AMINOTRANSFERASE,ALT 24 U/L (12-36); ALBUMIN 3.6 g/dL (3.5-5.2); ALKALINE PHOSPHATASE 94 IU/L (56-112); ASPARTATE AMNIOTRANSFERASE,AST 18 IU/L (5-25); BILIRUBIN TOTAL 0.4 mg/dL (0.1-1.3); MAGNESIUM 1.8 mg/dL (1.8-2.5); PROTEIN TOTAL,TP 7.8 g/dL (6.0-8.0)
[2024-01-09 20:42] LABS: BILIRUBIN,URINE NEGATIVE (NEGATIVE); GLUCOSE,URINE NORMAL (NORMAL); KETONES,URINE NEGATIVE (NEGATIVE); LEUKOCYTE ESTERASE,URINE NEGATIVE (NEGATIVE); NITRITE,URINE NEGATIVE (NEGATIVE); OCCULT BLOOD,URINE NEGATIVE (NEGATIVE); PROTEIN,URINE NEGATIVE (NEGATIVE); UROBILINOGEN,URINE NORMAL (NEGATIVE)
[2024-01-09 20:44] LABS: APPEARANCE,URINE CLEAR (CLEAR); BACTERIA,URINE FEW (NS); COLOR,URINE YELLOW (YELLOW); RBC,URINE 0-5 (0-5); SQUAMOUS EPITHELIAL CELLS,UR FEW (NS,R,O); WBC,URINE 0-5 (0-5)
[2024-01-09] MEDS ORDERED: Sodium Chloride 0.9% 1,000 ML IV SCH (21:00)
[2024-01-09] MEDS: HYDROmorphone 2 MG/ML SDV IVPUSH ONE (21:05)
[2024-01-09 21:27] VITALS: BP 107/80; PULSE 86
== END 2024-01-09 21:52 ==
LOC: FB.ED 19:43
DX: O00.00 Abdominal pregnancy without intrauterine pregnancy (principal); O99.891 Other specified diseases and conditions complicating pregnancy; R10.9 Unspecified abdominal pain; F17.200 Nicotine dependence, unspecified, uncomplicated; Z3A.00 Weeks of gestation of pregnancy not specified
CPT/HCPCS: 36415; 80053; 81001; 81025; 83690; 83735; 84702; 85025; 86140; 96361; 96374; 96375; 99285; J1170; J2270; J2405; J7030

== ENCOUNTER 2024-01-14 21:25 | Emergency (ER) | payer OTHER ==
[2024-01-14 22:11] LABS: BASOPHILS PERCENT AUTO 0.4 % (0.2-1.5); EOSINOPHILS ABSOLUTE AUTO 0.1 x10-3/uL (0.0-0.8); EOSINOPHILS PERCENT AUTO 1.5 % (0.6-8.1); HEMATOCRIT 29.5 % (34.2-48.2); HEMOGLOBIN 9.7 g/dL (11.4-15.5); LYMPHOCYTES ABSOLUTE AUTO 1.2 x10-3/uL (1.0-4.4); LYMPHOCYTES PERCENT AUTO 18.8 % (18.4-52.1); MEAN CORPUSCULAR HEMOGLOBIN 28.5 pg (23.9-33.9); MEAN CORPUSCULAR VOLUME 86.5 fL (76.7-100.5); MEAN PLATELET VOLUME 7.6 fL (7.1-12.4); MONOCYTES ABSOLUTE AUTO 0.3 x10-3/uL (0.3-1.0); MONOCYTES PERCENT AUTO 5.1 % (4.4-15.7); NEUTROPHILS ABSOLUTE AUTO 4.9 x10-3/uL (1.5-6.3); NEUTROPHILS PERCENT AUTO 74.2 % (30.8-76.2); PLATELET COUNT,PLT 331 x10(3)uL (151-488); RED BLOOD CELL COUNT 3.41 x10(6)uL (3.60-5.20); RED CELL DISTRIBUTION WIDTH 13.7 % (12.3-16.5); WHITE BLOOD CELL COUNT,WBC 6.6 x10-3/uL (3.0-10.3)
[2024-01-14 22:47] VITALS: BP 111/73; PULSE 83
== END 2024-01-14 23:24 | disposition home or self-care (01) ==
LOC: FB.ED 21:25
DX: O20.0 Threatened abortion (principal); Z3A.00 Weeks of gestation of pregnancy not specified
CPT/HCPCS: 36415; 84702; 85025; 86900; 86901; 99284

== ENCOUNTER 2025-05-02 20:51 | Emergency (ER) | payer SELFPAY ==
[2025-05-02] MEDS: Oxytocin 10 Units/1 ML SDV IM ONE (21:12)
[2025-05-02 21:39] LABS: BASOPHILS ABSOLUTE AUTO 0.0 x10-3/uL (0.0-0.1); BASOPHILS PERCENT AUTO 0.3 % (0.2-1.5); EOSINOPHILS ABSOLUTE AUTO 0.0 x10-3/uL (0.0-0.8); EOSINOPHILS PERCENT AUTO 0.1 % (0.6-8.1); LYMPHOCYTES ABSOLUTE AUTO 1.2 x10-3/uL (1.0-4.4); LYMPHOCYTES PERCENT AUTO 11.8 % (18.4-52.1); MEAN PLATELET VOLUME 8.8 fL (7.1-12.4); MONOCYTES ABSOLUTE AUTO 0.4 x10-3/uL (0.3-1.0); MONOCYTES PERCENT AUTO 4.2 % (4.4-15.7); NEUTROPHILS ABSOLUTE AUTO 8.4 x10-3/uL (1.5-6.3); NEUTROPHILS PERCENT AUTO 83.6 % (30.8-76.2); PLATELET COUNT,PLT 232 x10(3)uL (151-488); RED BLOOD CELL COUNT 3.84 x10(6)uL (3.60-5.20); WHITE BLOOD CELL COUNT,WBC 10.1 x10-3/uL (3.0-10.3)
[2025-05-02 21:45] LABS: RED CELL DISTRIBUTION WIDTH 18.5 % (12.3-16.5)
[2025-05-02 23:30] VITALS: BP 115/80; PULSE 92
== END 2025-05-03 00:45 ==
LOC: FB.ED 20:51
DX: O80 Encounter for full-term uncomplicated delivery (principal)
CPT/HCPCS: 36415; 85025; 96372; 99284; 99285; A9270-GY; J2590; J7030